=== PATIENT | male | born 1975 | race African-American/Black ===

== ENCOUNTER 2020-11-09 15:40 | Emergency (ER) | payer OTHER ==
[~2020-11-09] VITALS: Ht 172.7 cm; Wt 91.0 kg
[2020-11-09] MEDS ORDERED: BACITRACIN ZINC OINT UDPKT TOP ONE (16:15)
[2020-11-09] MEDS ORDERED: TETANUS, DIPHTHERIA, PERTUSSIS VAC/PF 0.5ML (>7YR OLD) IM ONE (16:15)
[2020-11-09] MEDS ORDERED: ACETAMINOPHEN 325MG TABLET PO ONE (16:15)
[2020-11-09] MEDS ORDERED: ACET-2708 MT (17:42)
[2020-11-09] MEDS ORDERED: NAPR-1176 MT (17:42)
[2020-11-09 19:04] VITALS: BP 131/83
== END 2020-11-09 19:37 | disposition home or self-care (01) ==
LOC: ER 15:40
DX: S09.8XXA Other specified injuries of head, initial encounter (principal); M54.2 Cervicalgia; M25.561 Pain in right knee; F17.210 Nicotine dependence, cigarettes, uncomplicated; V13.4XXA Pedal cycle driver injured in collision with car, pick-up truck or van in traffic accident, initial encounter; Y93.89 Activity, other specified; Y92.488 Other paved roadways as the place of occurrence of the external cause
CPT/HCPCS: 73562; 90715; 99285